=== PATIENT | female | born 1970 | race Caucasian/White ===

== ENCOUNTER → 2017-10-13 | Outpatient (CLI) | payer OTHER ==
[2016-01-06 15:04] VITALS: BP 123/75
[~2017-10-13] MED LIST: AMLO5TAB2 PO; CLON-276 PO; CLON0.1T PO; GLIP10TA13 PO; HYDR-2758 PO; HYDR-2762 PO; INSU100V13 SQ; LISI1TAB5 PO; LITH300T3 PO; METO25TA2 PO
--- NOTE | 2017-10-13 17:10 | RAD ---
3 views right foot 10/13/2017 Clinical indication: Right foot red and swollen for 2 weeks no trauma. Comparison: None. Findings: No acute fracture or traumatic malalignment. The joint spaces are maintained. Normal bony alignment. Mild infracalcaneal spurring. The visualized soft tissues are unremarkable. Impression: No acute osseous abnormality.
== END | disposition home or self-care (01) ==
LOC: RAD 16:39
PROVIDERS: ATTEND Family Medicine
DX: M79.671 Pain in right foot (principal); M79.89 Other specified soft tissue disorders
CPT/HCPCS: 73630

== ENCOUNTER → 2017-11-01 | Outpatient (CLI) | payer OTHER ==
[2016-01-06 15:04] VITALS: BP 123/75
--- NOTE | 2017-11-01 10:55 | RAD ---
Right lower extremity venous duplex ultrasound. 11/01/2017 10:53 AM Indication: rt foot pain calf swelling Comparison study: None Discussion: Sonographic evaluation of the deep veins of the right lower extremity was performed. This includes grayscale imaging and color duplex imaging with spectral analysis. No evidence of deep venous thrombosis is seen. Interrogated veins are compressible and demonstrate augmentable blood flow and color Doppler imaging. Impression: No evidence of deep venous thrombosis involving the right lower extremity
== END | disposition home or self-care (01) ==
LOC: US 10:10
PROVIDERS: ATTEND Family Medicine
DX: M79.671 Pain in right foot (principal); M79.89 Other specified soft tissue disorders
CPT/HCPCS: 93971

== ENCOUNTER → 2018-10-19 | Outpatient (CLI) | payer OTHER ==
[2016-01-06 15:04] VITALS: BP 123/75
[~2018-10-19] MED LIST changes: +AMLO5TAB10 PO; -AMLO5TAB2 PO; +HYDR-2155 PO; -HYDR-2758 PO; -HYDR-2762 PO; +HYDR-2765 PO
[2018-10-19 12:39] LABS: BASO # 0.1 x10^3/uL (0.0-0.2); BASO % 1 % (0-3); EOS # 0.4 x10^3/uL (0.0-0.7); EOS % 4 % (0-3); HEMATOCRIT 48.6 % (36.0-47.0); HEMOGLOBIN 16.2 g/dL (12.0-15.5); LYMPH # 2.6 x10^3/uL (1.0-4.8); LYMPH % 28 % (24-48); MEAN CORPUSCULAR HEMOGLOBIN 30 pg (25-35); MEAN CORPUSCULAR HGB CONC 33 g/dL (31-37); MEAN CORPUSCULAR VOLUME 91 fL (79-100); MONO # 0.9 x10^3/uL (0.0-1.1); MONO % 9 % (0-9); NEUT # 5.4 x10^3uL (1.8-7.7); NEUT % 58 % (31-73); PLATELET COUNT 282 x10^3/uL (140-400); RED BLOOD COUNT 5.35 x10^6/uL (3.50-5.40); RED CELL DISTRIBUTION WIDTH 15.4 % (11.5-14.5); WHITE BLOOD COUNT 9.4 x10^3/uL (4.0-11.0)
[2018-10-19 12:51] LABS: ALBUMIN 3.6 g/dL (3.4-5.0); ALBUMIN/GLOBULIN RATIO 0.7 (1.0-1.7); CALCIUM 9.5 mg/dL (8.5-10.1); CREATININE 1.8 mg/dL (0.6-1.0); GFR 29.8; POTASSIUM 3.6 mmol/L (3.5-5.1); TOTAL BILIRUBIN 0.3 mg/dL (0.2-1.0); TOTAL PROTEIN 8.5 g/dL (6.4-8.2)
[2018-10-20 00:07] LABS: HEMOGLOBIN A1C 7.9 % (4.8-5.6)
[2018-10-20 14:31] LABS: FREE T4 0.95 ng/dL (0.76-1.46); THYROID STIM HORMONE (TSH) 1.8 uIU/mL (0.358-3.740)
== END | disposition home or self-care (01) ==
LOC: LAB 10:49
PROVIDERS: ATTEND Family Medicine
DX: Z79.899 Other long term (current) drug therapy (principal)
CPT/HCPCS: 36415; 80053; 80061; 82306; 82607; 83036; 84439; 84443; 84481; 85025